=== PATIENT | female | born 1965 | race Caucasian/White ===

== ENCOUNTER → 2017-06-18 | Outpatient (CLI) | payer OTHER ==
[2014-07-06 20:22] VITALS: BP 147/78
[~2017-06-18] MED LIST: ESTR0.5T PO; GADOBUTROL 10 MMOL/10 ML VIAL IV ONE; SPIR50TA2 PO
--- NOTE | 2017-06-18 15:04 | KCIC ---
MRI Brain with and without contrast History: Diplopia, headaches, symptoms for a few weeks Technique: Multiplanar, multi sequential pre and postcontrast MR imaging was performed of the brain. Contrast: 10 cc Gadavist Comparison: June 13, 2014 Findings: There is some motion degradation. There is no evidence of recent infarct or cytotoxic edema. The ventricles, sulci, and cisterns are within normal limits in size and configuration. There is no significant midline shift, intraaxial mass effect, or focal abnormal extra-axial fluid collection. There are again several scattered tiny foci of T2 and FLAIR hyperintense signal of the supratentorial white matter bilaterally. A couple of these are new such as of the bifrontal deep white matter. There is no nodular parenchymal or leptomeningeal enhancement. There is preservation of the major intracranial flow-voids at the skull base. The cerebellar tonsils are normal in location. There is no significant abnormality of the pineal gland or pituitary gland. Paranasal sinuses are overall aerated. The mastoid air cells are aerated. There is nonspecific heterogeneity of the marrow of the nonexpanded clivus as seen previously. Impression: 1. There are again scattered small foci of nonenhancing T2 and FLAIR hyperintense abnormality of the supratentorial white matter. A couple of these are new such as of the bilateral frontal lobes. The findings are nonspecific. Sequela of an inflammatory demyelinating disease cannot be excluded. White matter changes can be seen in patients with migraine headaches if corresponding history. Sequela of chronic microvascular ischemic disease would be another possibility especially if risk factors such as hypertension or diabetes. There is no significant variable restricted diffusion as more commonly associated with vasculitis. Electronically signed by: Jeff Sebastian MD (06/18/2017 3:00 PM) [facility]
== END | disposition home or self-care (01) ==
LOC: KCIC MRI 13:32
PROVIDERS: ATTEND Family Medicine
DX: H53.2 Diplopia (principal); R51 Headache
CPT/HCPCS: 70553; A9585

== ENCOUNTER → 2017-11-17 | Outpatient (CLI) | payer OTHER ==
[2017-11-17] MEDS: IOHEXOL 300 MG/ML 100ML VIAL. IV ×2 (09:15)
== END | disposition home or self-care (01) ==
LOC: KCIC CT 08:34
DX: I77.810 Thoracic aortic ectasia (principal); R16.1 Splenomegaly, not elsewhere classified; R07.9 Chest pain, unspecified
CPT/HCPCS: 71275; Q9967

== ENCOUNTER → 2017-12-14 | Outpatient (CLI) | payer OTHER | END | disposition home or self-care (01) | LOC: ECHO 10:27 | DX: I10 Essential (primary) hypertension (principal); I34.0 Nonrheumatic mitral (valve) insufficiency | CPT/HCPCS: 93306 ==

== ENCOUNTER → 2019-01-03 | Outpatient (CLI) | payer OTHER ==
[2014-07-06 20:22] VITALS: BP 147/78
[~2019-01-03] MED LIST changes: -GADOBUTROL 10 MMOL/10 ML VIAL IV ONE; -SPIR50TA2 PO; +SPIR50TA4 PO
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
== END | disposition home or self-care (01) ==
LOC: RAD 12:36
PROVIDERS: ATTEND Nurse Practitioner Gerontology
DX: M46.04 Spinal enthesopathy, thoracic region (principal); M46.02 Spinal enthesopathy, cervical region
CPT/HCPCS: 72040; 72072

== ENCOUNTER → 2019-01-06 | Outpatient (CLI) | payer OTHER ==
[2014-07-06 20:22] VITALS: BP 147/78
--- NOTE | 2019-01-06 11:31 | RAD ---
Three views lumbar spine. 01/06/2019 9:55 AM Indication: Low back pain with sciatica Comparison Study: None Findings: No evidence of acute fracture or alignment abnormality is identified. Minimal dextrocurvature of the lumbar spine is noted. Disc space narrowing involving the inferior thoracic spine is noted. Disc space narrowing at L5-S1 is seen. No evidence of spondylolysis or significant spondylolisthesis is seen. Facet arthrosis is seen most prominent at L4-5 and L5-S1. Component of neural foraminal narrowing cannot excluded at these levels. IMPRESSION: Degenerative changes of the lumbar spine most prominently at L4-S1 with areas significant facet arthrosis. Neural foraminal stenosis is not excluded at these levels. Consider follow-up MRI as clinically indicated. Electronically signed by: Alex Jamison MD (01/06/2019 11:28 AM) [id number]
== END | disposition home or self-care (01) ==
LOC: RAD 09:38
PROVIDERS: ATTEND Nurse Practitioner Gerontology
DX: M47.897 Other spondylosis, lumbosacral region (principal); M48.07 Spinal stenosis, lumbosacral region; M48.04 Spinal stenosis, thoracic region
CPT/HCPCS: 72100

== ENCOUNTER → 2019-05-11 | Outpatient (CLI) | payer OTHER ==
[2014-07-06 20:22] VITALS: BP 147/78
--- NOTE | 2019-05-11 15:50 | KCIC ---
LUMBAR SPINE WO CONTRAST Date: 05/11/2019 2:00 PM Indication: Low back pain Comparison: None. Technique: Multi-planar multi-weighted magnetic resonance imaging of the lumbar spine was performed without intravenous contrast using the standard lumbar spine protocol. FINDINGS: The lumbar spine is normally aligned. No acute fracture. Mild multilevel degenerative disc desiccation and disc height loss. No marrow replacing process to suggest malignancy. The conus terminates at a normal level. No abnormal signal is seen within the visualized distal spinal cord. No clumping of intrathecal nerve roots. No soft tissue abnormality in the visualized abdomen or pelvis. T12-L1: Disc bulge. Mild facet arthropathy. No significant spinal stenosis or neural foraminal narrowing. L1-L2: Disc bulge. Mild facet arthropathy. No significant spinal stenosis or neural foraminal narrowing. L2-L3: Disc bulge. Mild facet arthropathy. No significant spinal stenosis or neural foraminal narrowing. L3-L4: Disc bulge. Mild facet arthropathy. No significant spinal stenosis or neural foraminal narrowing. L4-L5: Disc bulge. Moderate facet arthropathy. No significant spinal stenosis or neural foraminal narrowing. L5-S1: Disc bulge. Moderate facet arthropathy. No significant spinal stenosis. Moderate neural foraminal narrowing. IMPRESSION: Lumbar spondylosis, detailed level by level above. Electronically signed by: Jeff Kramer MD (05/11/2019 3:47 PM) [facility]
== END | disposition home or self-care (01) ==
LOC: KCIC MRI 13:39
PROVIDERS: ATTEND Family Medicine
DX: M47.816 Spondylosis without myelopathy or radiculopathy, lumbar region (principal); M48.07 Spinal stenosis, lumbosacral region; M12.88 Other specific arthropathies, not elsewhere classified, other specified site
CPT/HCPCS: 72148

== ENCOUNTER → 2019-08-15 | Outpatient (CLI) | payer OTHER ==
[2014-07-06 20:22] VITALS: BP 147/78
--- NOTE | 2019-08-16 15:45 | KCIC ---
HIP BILATERAL WITH PELVIS History: Bilateral hip pain. Technique: AP view of the pelvis and 2 additional views of the bilateral hips. Comparison: None. Findings: Normal alignment of the hips. No fracture. Lower lumbar spondylosis. Mild pubic symphysis DJD. Impression: 1. No acute osseous abnormality. 2. Lower lumbar spondylosis. Electronically signed by: Porter Paige DO (08/16/2019 3:42 PM) [facility]
== END | disposition home or self-care (01) ==
LOC: KCIC 14:09
PROVIDERS: ATTEND Family Medicine
DX: M47.816 Spondylosis without myelopathy or radiculopathy, lumbar region (principal)
CPT/HCPCS: 73521